=== PATIENT | female | born 1975 | race Caucasian/White ===

== ENCOUNTER 2024-10-05 02:36 | Emergency (ER) | payer OTHER ==
[2024-10-05] MEDS: Phenazopyridine 95 MG Tab PO STA (03:01)
[2024-10-05] MEDS: Nitrofurantoin Monohydrate/Macrocrystalline 100 MG Cap PO STA (03:01)
[2024-10-05 04:27] LABS: APPEARANCE,URINE CLEAR (CLEAR); BILIRUBIN,URINE POC NEGATIVE (NEGATIVE); COLOR,URINE POC RED (YELLOW); GLUCOSE,URINE POC NEGATIVE (NEGATIVE); KETONES,URINE POC NEGATIVE (NEGATIVE); OCCULT BLOOD,URINE POC LARGE (NEGATIVE); PROTEIN,URINE POC 30 (NEGATIVE)
[2024-10-05 04:28] LABS: LEUKOCYTE ESTERASE,URINE POC TRACE (NEGATIVE); NITRITE,URINE POC NEGATIVE (NEGATIVE); UROBILINOGEN,URINE POC 0.2 (0.2)
[2024-10-05 08:06] LABS: RBC,URINE POC 0-5 /HPF (NOT SEEN)
[2024-10-05 08:07] LABS: BACTERIA,URINE POC FEW (NOT SEEN)
[2024-10-05 08:08] LABS: SQUAMOUS EPITHELIAL CELLS,UR P FEW /HPF (NOT SEEN)
[2024-10-05 08:09] LABS: MUCUS,URINE POC NOT SEEN (NOT SEEN)
== END 2024-10-05 03:18 | disposition home or self-care (01) ==
LOC: VM.ED 02:36
DX: N30.01 Acute cystitis with hematuria (principal); Z88.1 Allergy status to other antibiotic agents
CPT/HCPCS: 81000; 87086; 87186; 99283; A9270-GY